=== PATIENT | female | born 1970 | race Caucasian/White ===

== ENCOUNTER 2017-05-26 18:39 | Emergency (ER) | payer MEDICAID ==
[~2017-05-26] VITALS: Ht 152.4 cm; Wt 47.6 kg
[~2017-05-26 18:39] MED LIST: INSU100V14 SC; NPH,100V SQ; PREN1TAB49
[2017-05-26 18:56] VITALS: Ht 152.4 cm; Wt 47.6 kg
--- NOTE | 2017-05-26 20:47 | RADRPT ---
PROCEDURE: US orbits. CLINICAL INDICATION: Bilateral visual disturbance. TECHNIQUE: High-resolution sonography of the orbits was performed in the axial and sagittal planes . COMPARISON: None. FINDINGS: On the right side, there is a thin linear band posteriorly in the globe which may indicate a small r egion of retinal detachment. On the left side, there is an irregular soft tissue mass posteriorly measuring 0.4 x 1.2 cm in AP an d transverse dimensions consistent with retinal detachment with adjacent hemorrhage. IMPRESSION: 1. On the right, possible small region of retinal detachment posteriorly. 2. On the left, irregular soft tissue mass posteriorly consistent with probable retinal detachment with adjacent hemorrhage. 3. Ophthalmology consultation advised. Call report: A call report of the findings was made to ELIZA Vazquez on 05/26/2017 at 2043 hour s. RPTAT: QQ .Otis Freeman MD, Date Time Electronically viewed and signed by .Otis Freeman MD, MD on 05/26/2017 20:47 .R/
--- NOTE | 2017-05-26 20:49 | ERD ---
ER Documentation Chief Complaint Chief Complaint headache since last night and blurred vision on left eye, hx of DM HPI Patient is a 46-year-old female presents to the ED for concerns of a headache which started 1 week ago and blurry vision which started yesterday. Patient states that the pain is in her posterior head. Patient describes the pain to be gradually worsening. Patient states she has been taking Tylenol with relief. Patient does admit to history of headaches in the past. Patient denies any nausea, vomiting, phonophobia, loss consciousness. Patient denies any trauma or falls. Patient states yesterday she started to develop blurry vision out of her left eye. Patient reports a "black covering over vision". Patient denies any contact lens use. Patient denies any fevers or chills. Patient denies any neck pain or neck stiffness. Patient denies any chest pain, shortness breath, left upper extremity pain, diaphoresis or loss of consciousness. ROS All systems reviewed and are negative except as per history of present illness. Medications Home Meds Reported Medications Nph, Human Insulin Isophane (Humulin N) 100 Units/Ml Vial, 0 SQ HS 06/23/11 Nph, Human Insulin Isophane (Humulin N) 100 Units/Ml Vial, 0 SQ AC BREAKFAST 06/23/11 Insulin Regular, Human (Humulin R) 100 Units/Ml Vial, 0 SC ac dinner 06/23/11 Insulin Regular, Human (Humulin R) 100 Units/Ml Vial, 0 SC AC BREAKFAST 06/23/11 Vits W-Ca,Fe,Fa(<1MG) () 1 Tab Tablet 02/13/11 Allergies Allergies: Coded Allergies: No Known Drug Allergy (Verified Allergy, Unknown, 11/23/10) Uncoded Allergies: NKA (Allergy, Mild, 11/23/10) PMhx/Soc History of Surgery: Yes (c section) Anesthesia Reaction: No Hx Neurological Disorder: No Hx Respiratory Disorders: No Hx Cardiac Disorders: No Hx Psychiatric Problems: No Hx Miscellaneous Medical Probl: Yes (DM) Hx Alcohol Use: No Hx Substance Use: No Hx Tobacco Use: No Smoking Status: Never smoker FmHx Family History: No diabetes Physical Exam Vitals Vital Signs Date Time Temp Pulse Resp B/P Pulse Ox O2 Delivery O2 Flow Rate FiO2 05/26/17 23:27 98.1 90 16 114/70 100 Room Air 11/10/17 18:56 98.0 98 19 109/68 99 Physical Exam GENERAL: Well-developed, well-nourished female. Appears in no acute distress. Speaking in full sentences. HEAD: Normocephalic, atraumatic. EYES: Pupils are equally reactive bilaterally. EOMs grossly intact. No conjunctival erythema noted bilaterally. Snellen Chart: OU: 20/40, OD: 20/50, OS: 0 ENT: Moist mucous membranes. No uvula deviation. No kissing tonsils. NECK: Supple. No meningismus. Normal range of motion of the neck. LUNG: Clear to auscultation bilaterally. No rhonchi, wheezing, rales or coarse breath sounds. HEART: Regular rate and rhythm. No murmurs, rubs or gallops. EXTREMITIES: Equal pulses bilaterally. No peripheral clubbing, cyanosis or edema. No unilateral leg swelling. NEUROLOGIC: Alert and oriented x3, cooperative. Mood and affect appropriate to situation. Cranial nerves II through XII are grossly intact. Normal speech. Motor exam: 5/5 strength in upper and lower extremities. Sensory exam: Sensation intact to light touch on all four extremities. Cerebellar function exam:. No dysmetria on [id number]-[id number]-dchk test. Steady gait. No pronator drift. SKIN: Normal color. Warm and dry. No rashes or lesions. Results 24 hrs Laboratory Tests Test 05/26/17 21:13 Bedside Glucose 250mg/dL Current Medications Medications (Trade) Dose Ordered Sig/Ric Route PRN Reason Start Time Stop Time Status Last Admin Dose Admin Tetracaine HCl (Tetracaine 0.5% Steri-Unit Delores) 1 drop ONCE ONCE BOTH EYES 05/26/17 21:00 05/26/17 21:01 DC Acetaminophen (Tylenol Tab) 1,000 mg ONCE STAT PO 05/26/17 22:26 05/26/17 22:27 DC 05/26/17 22:26 Procedures/MDM ED COURSE: The patient was stable throughout ED course. I kept the patient and/or family informed of laboratory and diagnostic imaging results throughout the ED course. DIAGNOSTIC IMAGING: Read by radiologist. Patient: REJI CAMACHO : 1970 Age: 46 Sex: F [id number] [id number] DOS: 05/26/172011 Ordering MD: LESLIE ROSAS PA-C Location: [facility] Room/Bed: PROCEDURE: US orbits. CLINICAL INDICATION: Bilateral visual disturbance. TECHNIQUE: High-resolution sonography of the orbits was performed in the axial and sagittal planes. COMPARISON: None. FINDINGS: On the right side, there is a thin linear band posteriorly in the globe which may indicate a small region of retinal detachment. On the left side, there is an irregular soft tissue mass posteriorly measuring 0.4 x 1.2 cm in AP and transverse dimensions consistent with retinal detachment with adjacent hemorrhage. IMPRESSION: 1. On the right, possible small region of retinal detachment posteriorly. 2. On the left, irregular soft tissue mass posteriorly consistent with probable retinal detachment with adjacent hemorrhage. 3. Ophthalmology consultation advised. Call report: A call report of the findings was made to ELIZA Vazquez on 04/2017 at 2043 hours. RPTAT: QQ .Otis Freeman MD MD Date Time Electronically viewed and signed by .Otis Freeman MD, MD on 05/26/2017 20:47 .R/ CC: LESLIE ROSAS PA-C Patient: REJI CAMACHO : 1970 Age: 46 Sex: F MR #: [id number] DOS: 05/26/172011 Ordering MD: LESLIE ROSAS PA-C Location: [facility] Room/Bed: PROCEDURE: CT Brain without contrast. CLINICAL INDICATION: Headache for 1 week. TECHNIQUE: A CT of the brain without contrast was performed utilizing axial sections from the skull base through the vertex. The patient was scanned without intravenous contrast enhancement. Sagittal and coronal reformatted images were obtained using the data from the axial images. Total exam DLP is 720.23 mGy-cm. CTDIvol is 44.46 mGy. One or more of the following dose reduction techniques were used: Automated exposure control, adjustment of the mA and/or kV according to patient size, use of iterative reconstruction technique. DICOM images are available. COMPARISON: None available FINDINGS: There is normal miranda-white matter differentiation. The ventricles and cisterns are normal. There is no intracranial hemorrhage or space-occupying lesion. There is no skull fracture or lytic lesion. IMPRESSION: 1. No intracranial hemorrhage. 2. Normal noncontrast CT scan of the brain. RPTAT: QQ .Otis Freeman MD, Date Time Electronically viewed and signed by .Otis Freeman MD, MD on 05/26/2017 20:59 .R/ CC: LESLIE ROSAS PA-C PROCEDURES: None. MEDICATIONS GIVEN: Tylenol Patient tolerated medication well with no adverse reactions. MEDICAL DECISION MAKING: Patient is a 46-year-old female with a history of diabetes who presents to the ED with concerns of a posterior headache 1 week and blurry vision out of her left eye which started yesterday. Vital signs were reviewed. Patient was afebrile. Patient was not hypoxic. POC glucose was 250. Orbital ultrasound was obtained. Ultrasound showed 1. On the right, possible small region of retinal detachment posteriorly. 2. On the left, irregular soft tissue mass posteriorly consistent with probable retinal detachment with adjacent hemorrhage. 3. Ophthalmology consultation advised. Visual acuity was noted to be 20/40 bilaterally 20/50 out of the right eye, no vision out of left eye. CT brain was negative. I discussed the patient's findings with my supervising physician, Dr. Cole. Patient requires emergent ophthalmology consultation. Given that ophthalmology is not on staff here at [facility], patient will be transferred for higher level of care to [facility]. I spoke to the [facility] as well as Dr. Romo at [facility] who agrees to transfer and accepting the patient for further management. Patient will be transferred via ambulance. Patient was stable throughout the ED course. Patient was aware of transfer. All questions answered. Disclaimer: Inadvertent spelling and grammatical errors are likely due to EHR/ dictation software use and do not reflect on the overall quality of patient care. Also, please note that the electronic time recorded on this note does not necessarily reflect the actual time of the patient encounter. Departure Diagnosis: Primary Impression: Retinal detachment Laterality: bilateral Qualified Code: H33.23 - Bilateral retinal detachment Condition: Serious LESLIE ROSAS PA-C May 26, 2017 20:49
--- NOTE | 2017-05-26 20:59 | RADRPT ---
PROCEDURE: CT Brain without contrast. CLINICAL INDICATION: Headache for 1 week. TECHNIQUE: A CT of the brain without contrast was performed utilizing axial sections from the skul l base through the vertex. The patient was scanned without intravenous contrast enhancement. Sagitta l and coronal reformatted images were obtained using the data from the axial images. Total exam DLP is 720.23 mGy-cm. CTDIvol is 44.46 mGy. One or more of the following dose reduction techniques we re used: Automated exposure control, adjustment of the mA and/or kV according to patient size, use o f iterative reconstruction technique. DICOM images are available. COMPARISON: None available FINDINGS: There is normal miranda-white matter differentiation. The ventricles and cisterns are normal. There is no intracranial hemorrhage or space-occupying lesion. There is no skull fracture or lytic lesion. IMPRESSION: 1. No intracranial hemorrhage. 2. Normal noncontrast CT scan of the brain. RPTAT: QQ .Otis Freeman MD, MD Date Time Electronically viewed and signed by .Otis Freeman MD, on 05/26/2017 20:59 .R/
[2017-05-26] MEDS ORDERED: TETRACAINE 0.5% 4 ML OPH BOTH EYES ONE (21:00)
[2017-05-26] MEDS ORDERED: ACETAMINOPHEN 500 MG TAB PO STA (22:26)
[2017-05-26 23:27] VITALS: BP 114/70; PULSE 90; RESP 16; TEMP 98.1
== END 2017-05-26 23:43 | disposition short-term general hospital (02) ==
LOC: FTE 18:39
DX: H33.23 Serous retinal detachment, bilateral (principal); E11.9 Type 2 diabetes mellitus without complications; Z79.4 Long term (current) use of insulin
CPT/HCPCS: 70450; 76536; 82962; Z7502; Z7610

== ENCOUNTER 2018-11-07 19:04 | Emergency (ER) | payer MEDICAID ==
[~2018-11-07] VITALS: Ht 157.5 cm; Wt 48.6 kg
[2018-11-07 19:16] VITALS: BP 123/78; PULSE 94; RESP 16; Ht 157.5 cm; Wt 48.6 kg
--- NOTE | 2018-11-07 20:18 | ERD ---
ER Documentation Chief Complaint Chief Complaint L ear pain x 1 week HPI 47-year-old female, with history of diabetes, presents to the emergency department, complaining of 1 week with progressive worsening of left ear pain. The pain is sharp, occasionally throbbing, constant, 7/10. The patient has been taking ibuprofen and Tylenol with transient improvement of the symptoms. She also reports subjective fever and mild sore throat. Otherwise, no ear discharge, no headache, no blurred vision, no neck rigidity. ROS All systems reviewed and are negative except as per history of present illness. Medications Home Meds Active Scripts Ibuprofen* (Motrin*) 400 Mg Tab, 400 MG PO Q6H PRN for PAIN AND OR ELEVATED TEMP, #30 TAB Prov:DARRELL AMBRIZ MD 11/07/18 Neomycin/Polymyxin/Hydrocort* (Cortisporin* Otic) 10 Ml Susp, 4 DROP LEFT EAR QID for 7 Days, EA Prov:DARRELL AMBRIZ MD 11/07/18 Amoxicillin* (Amoxicillin*) 500 Mg Cap, 500 MG PO TID for 7 Days, CAP Prov:DARRELL AMBRIZ MD 11/07/18 Reported Medications Nph, Human Insulin Isophane (Humulin N) 100 Units/Ml Vial, 0 SQ HS 06/23/11 Nph, Human Insulin Isophane (Humulin N) 100 Units/Ml Vial, 0 SQ AC BREAKFAST 06/23/11 Insulin Regular, Human (Humulin R) 100 Units/Ml Vial, 0 SC ac dinner 06/23/11 Insulin Regular, Human (Humulin R) 100 Units/Ml Vial, 0 SC AC BREAKFAST 06/23/11 Vits W-Ca,Fe,Fa(<1MG) () 1 Tab Tablet 02/13/11 Allergies Allergies: Coded Allergies: No Known Drug Allergy (Verified Allergy, Unknown, 11/23/10) Uncoded Allergies: NKA (Allergy, Mild, 11/23/10) PMhx/Soc History of Surgery: Yes (c section) Anesthesia Reaction: No Hx Neurological Disorder: No Hx Respiratory Disorders: No Hx Cardiac Disorders: No Hx Psychiatric Problems: No Hx Miscellaneous Medical Probl: Yes (DM) Hx Alcohol Use: No Hx Substance Use: No Hx Tobacco Use: No FmHx Family History: No diabetes, No coronary disease Physical Exam Vitals Vital Signs Date Temp Pulse Resp B/P (MAP) Pulse Ox O2 O2 Flow FiO2 Time Delivery Rate 11/07/18 97.2 94 16 123/78 99 19:16 (93) Physical Exam Patient alert, oriented, vital signs stable. HEENT: Normocephalic, atraumatic. EYES: PERRLA, EOMI, Sclera and conjunctiva appear normal. EARS: Left ear with significant tympanic membrane erythema, retraction and opacity with edema of the canal. Contralateral ear normal. THROAT: Erythematous oropharynx. NECK: Supple, No lymphadenopathy. Full ROM without pain or tenderness. HEART: RRR, no rubs, murmurs, clicks or gallops. LUNGS: Clear to auscultation. ABDOMEN: Soft, non-tender without masses or hepatosplenomegaly. EXTREMITIES: No edema bilaterally. BACK: Full ROM, no deformity, normal back exam NEURO: Cranial nerves grossly intact, no motor or sensory deficit Procedures/MDM Vital signs stable, differential diagnosis include but not limited to: infection bacterial/viral/fungal. Tonsillitis, eustachian dysfunction, allergies, foreign body, cholesteatoma. Less likely mastoiditis, malignant otitis, meningitis. Physical examination and clinical presentation consistent most likely with infection of the left ear. During the ED course the patient remained stable, no new complaints. Clinical impression discussed with the patient who agrees with management. The patient is stable to be treated outpatient and will be discharged home with a Rx for antibiotics and ibuprofen. Some side effects of prescribed medications (headache, rash, nausea, vomiting, diarrhea, interactions with other medications) were reviewed. The patient was instructed to follow up with the primary care provider in the next 48h. If symptoms persist, worsen or new symptoms develop, then patient should return to the ED immediately. Disclaimer: Inadvertent spelling and grammatical errors are likely due to EHR/dictation software use and do not reflect on the overall quality of patient care. Also, please note that the electronic time recorded on this note does not necessarily reflect the actual time of the patient encounter. Departure Diagnosis: Primary Impression: Infection of left ear Condition: Stable Additional Instructions: Muchas devaughn por [facility] para cárdenas servicio. Esperamos que en cárdenas visita a la elizabeth de emergencia cárdenas problema medico haya sido solucionado y que se sienta mucho mejor. Para estar seguros que cárdenas mejoria sigue en proceso, le pedimos el favor de hacer sugey juan de seguimiento medico con cárdenas doctor primario en los proximos 2-4 [place]. Lleve con usted estos documentos y las medicinas recetadas. Si ellen sintomas empeoran, NO SE ESPERE, por favor regrese a elizabeth de emergencia INMEDIATAMENTE. En qi que usted no tenga un mdico de atencin primaria: Llame al mdico o clnica comunitaria de referencia que aparece abajo lopez las horas de consultorio para hacer sugey juan para que le vean. CLINICAS: [facility] [phone] [facility] [phone] [facility] [phone] [facility] [phone] [facility] [phone] [facility] [phone] DARRELL CHEW MD Nov 07, 2018 20:18
[2018-11-07] MEDS ORDERED: NPH10OT LEFT EAR (20:19)
[2018-11-07] MEDS ORDERED: AMOX500C2 PO (20:19)
[2018-11-07] MEDS ORDERED: IBUP-1561 PO (20:19)
== END 2018-11-07 20:21 | disposition home or self-care (01) ==
LOC: E/R 19:04
DX: H66.92 Otitis media, unspecified, left ear (principal); E11.9 Type 2 diabetes mellitus without complications; Z79.4 Long term (current) use of insulin
CPT/HCPCS: 99283

== ENCOUNTER 2018-11-11 13:42 | Emergency (ER) | payer MEDICAID ==
[~2018-11-11] VITALS: Wt 48.2 kg
[~2018-11-11 13:42] MED LIST changes: +AMOX500C2 PO; +IBUP-1561 PO; +NPH10OT LEFT EAR
[2018-11-11 13:55] VITALS: RESP 20
[2018-11-11] MEDS ORDERED: CARB-155 BOTH EARS (15:41)
[2018-11-11] MEDS ORDERED: CIPR500T4 PO (15:41)
[2018-11-11] MEDS ORDERED: CIPR7.5D LEFT EAR (15:41)
[2018-11-11 16:08] VITALS: BP 115/62; PULSE 83
--- NOTE | 2018-11-11 16:45 | ERD ---
ER Documentation Chief Complaint Chief Complaint l. earache HPI Patient is a 47-year-old female with diabetes who presents with left-sided ear pain. She said this pain for the past few weeks. She was seen on November 07 for the same and was given amoxicillin, Cortisporin drops, and ibuprofen. The patient said that this has not helped. She has had no fevers. She does not currently have a primary doctor. ROS All systems reviewed and are negative except as per history of present illness. Medications Home Meds Active Scripts Carbamide Peroxide* (Debrox*) 6.5% -15 Ml Drops, 10 DROP BOTH EARS BID, #1 EA Prov:SILVIA PADILLA MD 11/11/18 Ciprofloxacin Hcl* (Ciprofloxacin Hcl*) 500 Mg Tablet, 500 MG PO BID for 10 Days, TAB Prov:SILVIA PADILLA MD 11/11/18 Ciprofloxacin Hcl/Dexameth (Ciprodex Otic Suspension) 7.5 Ml Drops.susp, 4 DROP LEFT EAR BID for 7 Days, EA Prov:SILVIA PADILLA MD 11/11/18 Ibuprofen* (Motrin*) 400 Mg Tab, 400 MG PO Q6H PRN for PAIN AND OR ELEVATED TEMP, #30 TAB Prov:DARRELL AMBRIZ MD 11/07/18 Neomycin/Polymyxin/Hydrocort* (Cortisporin* Otic) 10 Ml Susp, 4 DROP LEFT EAR QID for 7 Days, EA Prov:DARRELL AMBRIZ MD 11/07/18 Amoxicillin* (Amoxicillin*) 500 Mg Cap, 500 MG PO TID for 7 Days, CAP Prov:DARRELL AMBRIZ MD 11/07/18 Reported Medications Nph, Human Insulin Isophane (Humulin N) 100 Units/Ml Vial, 0 SQ HS 06/23/11 Nph, Human Insulin Isophane (Humulin N) 100 Units/Ml Vial, 0 SQ AC BREAKFAST 06/23/11 Insulin Regular, Human (Humulin R) 100 Units/Ml Vial, 0 SC ac dinner 06/23/11 Insulin Regular, Human (Humulin R) 100 Units/Ml Vial, 0 SC AC BREAKFAST 06/23/11 Vits W-Ca,Fe,Fa(<1MG) () 1 Tab Tablet 02/13/11 Allergies Allergies: Coded Allergies: No Known Drug Allergy (Verified Allergy, Unknown, 11/23/10) Uncoded Allergies: NKA (Allergy, Mild, 11/23/10) PMhx/Soc History of Surgery: Yes (c section) Anesthesia Reaction: No Hx Neurological Disorder: No Hx Respiratory Disorders: No Hx Cardiac Disorders: No Hx Psychiatric Problems: No Hx Miscellaneous Medical Probl: Yes (DM) Hx Alcohol Use: No Hx Substance Use: No Hx Tobacco Use: No Smoking Status: Never smoker FmHx Family History: No diabetes Physical Exam Vitals Vital Signs Date Temp Pulse Resp B/P (MAP) Pulse Ox O2 O2 Flow FiO2 Time Delivery Rate 11/11/18 83 115/62 16:08 (79) 11/11/18 97.7 80 20 102/60 99 13:55 (74) Physical Exam Const: No acute distress Head: Atraumatic Eyes: Normal Conjunctiva ENT: Patient has cerumen bilaterally, there is mild tenderness to the mastoid bone behind the left ear but no redness or crepitus noted Neck: Full range of motion. No meningismus. Resp: Clear to auscultation bilaterally Cardio: Regular rate and rhythm, no murmurs Abd: Soft, non tender, non distended. Normal bowel sounds Skin: No petechiae or rashes Back: No midline or flank tenderness Ext: No cyanosis, or edema Neur: Awake and alert Psych: Normal Mood and Affect Procedures/MDM Patient is a 47-year-old female who presents with otitis media and possible early mastoiditis. She is otherwise well-appearing without fevers and I do not believe she requires admission to the hospital or further work-up at this time. She will however be given a prescription for Cipro twice daily for 10 days and Ciprodex drops. She will need to follow-up with Dr. Banks or the ENT doctor of her choice for further evaluation. She can return sooner for any worsening symptoms. Departure Diagnosis: Primary Impression: Mastoiditis Laterality: left Qualified Codes: H70.92 - Unspecified mastoiditis, left ear Additional Impression: Otitis media Otitis media type: unspecified Chronicity: acute Qualified Codes: H66.90 - Otitis media, unspecified, unspecified ear Condition: Fair Patient Instructions: When Your Child Has Mastoiditis Referrals: MELVI BANKS MD Additional Instructions: Specialist:Usted tiene sugey condicin mdica que requiere que pearl a un especialista dentro de los prximos 1-2 villatoro.POR FAVOR,CON HUERTA SEGUIMIENTO DE PRIMARIA PHSICIAN refferal. SI USTED NO TIENE UN MDICO GENERAL Y / O USTED NO PUEDE PAGAR thiago a un mdico,los siguientes lopez RECURSOS sido suministrado a usted. ES HUERTA RESPONSABILIDAD PARA SER VISTOS POR EL ESPECIALISTA: SILVIA PADILLA MD Nov 11, 2018 16:45
== END 2018-11-11 16:09 | disposition home or self-care (01) ==
LOC: FTE 13:42
DX: H70.92 Unspecified mastoiditis, left ear (principal); E11.9 Type 2 diabetes mellitus without complications; H66.92 Otitis media, unspecified, left ear; Z79.4 Long term (current) use of insulin
CPT/HCPCS: 99283